=== PATIENT | male | born 1945 | race Caucasian/White ===

== ENCOUNTER 2019-04-12 22:37 | Inpatient (IN) | payer MEDICARE, OTHER ==
[~2019-04-12] VITALS: Ht 172.7 cm; Wt 76.2 kg
[2019-04-12] MEDS ORDERED: RT-ALBUTEROL/IPRATROPIUM 3 ML (DUONEB) VIAL ONE (22:51)
[2019-04-12] MEDS: NS IV 1000 ML 1,000 ML IV SCH (22:57)
[2019-04-12] MEDS ORDERED: RT-ALBUTEROL/IPRATROPIUM 3 ML (DUONEB) VIAL INH ONE (23:00)
[2019-04-12 23:12] LABS: BASOPHILS % (AUTO) 0 % (0-10); EOSINOPHILS % (AUTO) 0 % (0-10); HEMATOCRIT 39 % (40-54); HEMOGLOBIN 13.4 G/DL (13.3-17.7); LYMPHOCYTES # (AUTO) 1.2 X 10^3 (1.0-4.0); LYMPHOCYTES % (AUTO) 7 % (12-44); MEAN CORPUSCULAR HEMOGLOBIN 31 PG (25-34); MEAN CORPUSCULAR HGB CONC 34 G/DL (32-36); MEAN CORPUSCULAR VOLUME 89 FL (80-99); MEAN PLATELET VOLUME 9.9 FL (7.4-10.4); MONOCYTES # (AUTO) 1.4 X 10^3 (0.0-1.0); MONOCYTES % (AUTO) 8 % (0-12); NEUTROPHILS # (AUTO) 15.3 X 10^3 (1.8-7.8); NEUTROPHILS % (AUTO) 86 % (42-75); PLATELET COUNT 512 10^3/uL (130-400); RED CELL DISTRIBUTION WIDTH 12.7 % (10.0-14.5)
--- NOTE | 2019-04-12 23:21 | ED General ---
General Chief Complaint: Respiratory Problems Stated Complaint: SOB,CONGESTED Nursing Triage Note: AMBULATORY TO ED ROOM 5 WITH C/O SOA FOR A MONTH. DENIES HOME O2, BREATHING TX. STATES HE DOES NOT HAVE PCP. Nursing Sepsis Screen: No Definite Risk Source of Information: Patient Exam Limitations: No Limitations History of Present Illness Date Seen by Provider: Apr 12, 2019 Time Seen by Provider: 22:46 Initial Comments This 73-year-old gentleman presents to the emergency room with about one month of shortness of air, cough, and fevers. He has not taken his temperature at home but he is febrile on presentation. Oxygen saturation is 88 percent on room air. Nasal cannula was immediately applied. He appears very dry with dry mouth and lips. He denies any history of health problems. He has been taking no medications. He has no local medical provider. There are bibasilar crackles on exam. Allergies and Home Medications Allergies Coded Allergies: No Known Drug Allergies (Unverified , 04/12/19) Home Medications No Active Prescriptions or Reported Meds Patient Home Medication List Home Medication List Reviewed: Yes Review of Systems Review of Systems Constitutional: see HPI EENTM: see HPI Respiratory: see HPI Cardiovascular: no symptoms reported Gastrointestinal: no symptoms reported Genitourinary: no symptoms reported Musculoskeletal: no symptoms reported Skin: no symptoms reported Psychiatric/Neurological: No Symptoms Reported Hematologic/Lymphatic: No Symptoms Reported Past Tbdfxue-Ncawvd-Rmrpoi Hx Past Med/Social Hx: Reviewed Nursing Past Med/Soc Hx Patient Social History Alcohol Use: Occasionally Uses Recreational Drug Use: No Smoking Status: Former Smoker Recent Foreign Travel: No Contact w/Someone Who Travel: No Recent Infectious Disease Expo: No Recent Hopitalizations: No Physical Abuse: No Sexual Abuse: No Mistreated: No Fear: No Seasonal Allergies Seasonal Allergies: No Past Medical History Surgeries: No Respiratory: No Cardiac: No Neurological: No Genitourinary: No Gastrointestinal: No Musculoskeletal: No Endocrine: No HEENT: No Cancer: No Psychosocial: No Integumentary: No Blood Disorders: No Physical Exam-Suspected Sepsis Physical Exam Vital Signs Vital Signs - First Documented 04/12/19 04/12/19 04/12/19 22:45 22:46 23:02 Temp 37.9 Pulse 74 Resp 22 B/P (MAP) 97/62 (74) Pulse Ox 95 O2 Delivery Room Air O2 Flow Rate 2.00 Capillary Refill : Less Than 3 Seconds Blood Pressure Mean: 74 Height, Weight, BMI Height: '" Weight: lbs. oz. 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 Norm as Tested Skin: normal color, warm/dry Focused Exam Sepsis Stage: Severe Sepsis Possible Source: Pulmonary Lactate Level 04/12/19 22:55: Lactic Acid Level 2.93*H Time of Focused Exam: 23:40 Respiratory: No Accessory Muscle Use, No Respiratory Distress, Crackles Cardiovascular: Regular Rate, Rhythm, No Edema, No Murmur Capillary Refill: Less Than 3 Seconds Peripheral Pulses: 2+ Radial Pulses (R) Skin: normal color, warm/dry Lactic Acid Level Laboratory Tests Test 04/12/19 22:55 Lactic Acid Level 2.93 MMOL/L (0.50-2.00) *H Within 3hrs of presentation: Admin fluids, Admin ABX, Blood cultures prior to ABX's, Focus exam, Lactate level Progress/Results/Core Measures Suspected Sepsis Recent Fever Within 48 Hours: No Infection Criteria Present: Suspected New Infection New/Unexplained Altered Menta: No Sepsis Screen: No Definite Risk SIRS Temperature: Pulse: 74 Respiratory Rate: 22 Laboratory Tests 04/12/19 22:55: White Blood Count 18.0H Blood Pressure 97 /62 Mean: 74 04/12/19 22:55: Lactic Acid Level 2.93*H Laboratory Tests 04/12/19 22:55: Creatinine 1.09, INR Comment 1.3, Platelet Count 512H, Total Bilirubin 1.0 Results/Orders Lab Results Laboratory Tests Test 04/12/19 22:55 Range/Units White Blood Count 18.0 H 4.3-11.0 10^3/uL Red Blood Count 4.40 4.35-5.85 10^6/uL Hemoglobin 13.4 13.3-17.7 G/DL Hematocrit 39 L 40-54 % Mean Corpuscular Volume 89 80-99 FL Mean Corpuscular Hemoglobin 31 25-34 PG Mean Corpuscular Hemoglobin Concent 34 32-36 G/DL Red Cell Distribution Width 12.7 10.0-14.5 % Platelet Count 512 H 130-400 10^3/uL Mean Platelet Volume 9.9 7.4-10.4 FL Neutrophils (%) (Auto) 86 H 42-75 % Lymphocytes (%) (Auto) 7 L 12-44 % Monocytes (%) (Auto) 8 0-12 % Eosinophils (%) (Auto) 0 0-10 % Basophils (%) (Auto) 0 0-10 % Neutrophils # (Auto) 15.3 H 1.8-7.8 X 10^3 Lymphocytes # (Auto) 1.2 1.0-4.0 X 10^3 Monocytes # (Auto) 1.4 H 0.0-1.0 X 10^3 Eosinophils # (Auto) 0.0 0.0-0.3 10^3/uL Basophils # (Auto) 0.0 0.0-0.1 10^3/uL Neutrophils % (Manual) 79 % Lymphocytes % (Manual) 2 % Monocytes % (Manual) 9 % Band Neutrophils 10 % Blood Morphology Comment NORMAL Prothrombin Time 16.7 H 12.2-14.7 SEC INR Comment 1.3 0.8-1.4 Activated Partial Thromboplast Time 31 24-35 SEC Sodium Level 134 L 135-145 MMOL/L Potassium Level 3.9 3.6-5.0 MMOL/L Chloride Level 97 L 98-107 MMOL/L Carbon Dioxide Level 22 21-32 MMOL/L Anion Gap 15 H 5-14 MMOL/L Blood Urea Nitrogen 24 H 7-18 MG/DL Creatinine 1.09 0.60-1.30 MG/DL Estimat Glomerular Filtration Rate > 60 BUN/Creatinine Ratio 22 Glucose Level 271 H 70-105 MG/DL Lactic Acid Level 2.93 *H 0.50-2.00 MMOL/L Calcium Level 9.4 8.5-10.1 MG/DL Corrected Calcium 10.0 8.5-10.1 MG/DL Total Bilirubin 1.0 0.1-1.0 MG/DL Aspartate Amino Transf (AST/SGOT) 103 H 5-34 U/L Alanine Aminotransferase (ALT/SGPT) 109 H 0-55 U/L Alkaline Phosphatase 108 40-136 U/L C-Reactive Protein High Sensitivity 26.61 H 0.00-0.50 MG/DL Total Protein 7.6 6.4-8.2 GM/DL Albumin 3.2 3.2-4.5 GM/DL Micro Results Microbiology 04/12/19 Influenza Types A,B Antigen (BREANA) - Final, Complete My Orders Orders - JOSE GUZMÁN MD Cbc With Automated Diff (04/12/19 22:50) Comprehensive Metabolic Panel (04/12/19 22:50) Blood Culture (04/12/19 22:50) Sputum Culture (04/12/19 22:50) Urinalysis (04/12/19 22:50) Urine Culture (04/12/19 22:50) Protime With Inr (04/12/19 22:50) Partial Thromboplastin Time (04/12/19 22:50) Ed Iv/Invasive Line Start (04/12/19 22:50) Vital Signs Adult Sepsis Patie Q15M (04/12/19 22:50) O2 (04/12/19 22:50) Remove Rings In Anticipation O (04/12/19 22:50) Lactic Acid Analyzer (04/12/19 22:50) Influenza A And B Antigens (04/12/19 22:50) Ed Iv/Invasive Line Start (04/12/19 22:50) Ns Iv 1000 Ml (Sodium Chloride 0.9%) (04/12/19 22:50) Chest Pa/Lat (2 View) (04/12/19 22:52) Albuterol/Ipra Inhalation Soln (Duoneb I (04/12/19 23:00) Svn Small Volume Nebulizer (04/12/19 22:56) Albuterol/Ipra Inhalation Soln (Duoneb I (04/12/19 22:51) Hs C Reactive Protein (04/12/19 22:57) Manual Differential (04/12/19 22:55) Ceftriaxone For Iv Use (Rocephin For I (04/12/19 23:45) Acetaminophen Tablet (Tylenol Tablet) (04/12/19 23:45) Orphenadrine Injection (Norflex Injectio (04/13/19 00:00) Azithromycin Injection (Zithromax Inject (04/13/19 00:15) Medications Given in ED Current Medications Medications Dose Ordered Sig/Marva Route Start Time Stop Time Status Last Admin Dose Admin Acetaminophen 1,000 mg ONCE ONCE PO 04/12/19 23:45 04/12/19 23:46 DC 04/12/19 23:59 1,000 MG Albuterol/ Ipratropium 3 ml ONCE ONCE INH 04/12/19 23:00 04/12/19 23:01 DC 04/12/19 22:57 3 ML Ceftriaxone Sodium 1000 mg/ Sterile Water 10 ml @ 200 mls/hr ONCE ONCE IV 04/12/19 23:45 04/12/19 23:47 DC 04/12/19 23:59 200 MLS/HR Vital Signs/I&O 04/12/19 04/12/19 04/12/19 04/12/19 22:45 22:46 23:02 23:29 Temp 37.9 37.9 Pulse 74 64 Resp 22 22 B/P (MAP) 97/62 (74) 105/64 Pulse Ox 95 94 O2 Delivery Room Air Nasal Cannula Nasal Cannula Nasal Cannula O2 Flow Rate 2.00 2.00 2.00 04/12/19 23:59 Temp 37.9 Capillary Refill : Less Than 3 Seconds Blood Pressure Mean: 74 Progress Note #1: Time: 23:32 Progress Note Oxygen was administered by nasal cannula with resuscitation of oxygen saturation. DuoNeb treatment was administered. Septic workup is being pursued. 2 L of IV fluid have been ordered. X-ray and labs are pending. Progress Note #2: Time: 00:04 Progress Note Patient was found to have multilobar pneumonia on chest x-ray. Rocephin was ordered for initial antibiotic therapy for community-acquired pneumonia. Patient meets severe sepsis criteria due to the hypoxia but he is not in septic shock. Lactic acid is less than 4 and he is not hypotensive. He is receiving the 2 L normal saline bolus at this time. He wishes to have a full CODE STATUS. He will be admitted to the cardiac step down unit with the septic protocol orders. DuoNeb treatment was administered which seemed to improve his aeration some. Tylenol is being given for fever. Progress Note #3: Time: 00:31 Progress Note Patient complained of intractable hiccups. He states he has been given an injection before at the [facility] to help with his diaphragm spasms and hiccups. Many of the medications that can be used to treat hiccups have side effects that can cause respiratory suppression or hypotension. A 30 mg dose of Norflex is being trialed. Once patient's respiratory and hemodynamic stability is more certain, we could consider other medications such as Haldol. Diagnostic Imaging Diagonstic Imaging: Xray Plain Films/CT/US/NM/MRI: chest Comments Chest x-ray viewed by me. Report not yet available. There are infiltrates in multiple lobes including the right upper lobe and left lower lobe. Findings consistent with multilobar pneumonia. Departure Communication (Admissions) Time/Spoke to Admitting Phy: 23:50 Dr. Borja Impression Primary Impression: Severe sepsis Additional Impressions: Pneumonia Qualified Codes: J18.9 - Pneumonia, unspecified organism Hypoxia Intractable hiccups Disposition: ADMITTED INPATIENT Condition: Improved Admissions Decision to Admit Reason: Admit from ER (General) Decision to Admit/Date: Apr 12, 2019 Time/Decision to Admit Time: 22:50 Departure-Patient Inst. Scripts No Active Prescriptions or Reported Meds JOSE GUZMÁN MD Apr 12, 2019 23:21
[2019-04-12 23:24] LABS: INR 1.3 (0.8-1.4); PROTHROMBIN TIME PATIENT 16.7 SEC (12.2-14.7)
[2019-04-12 23:30] LABS: BAND NEUTROPHILS 10 %; LYMPHOCYTES % (MANUAL) 2 %; MONOCYTES % (MANUAL) 9 %; NEUTROPHILS % (MANUAL) 79 %; RBC MORPH NORMAL
[2019-04-12 23:38] LABS: ALANINE AMINOTRANSFERASE 109 U/L (0-55); ALBUMIN 3.2 GM/DL (3.2-4.5); ALKALINE PHOSPHATASE 108 U/L (40-136); BUN/CREATININE RATIO 22; CALCIUM 9.4 MG/DL (8.5-10.1); CARBON DIOXIDE 22 MMOL/L (21-32); CHLORIDE 97 MMOL/L (98-107); CREATININE SERUM 1.09 MG/DL (0.60-1.30); GFR ESTIMATED > 60; GLUCOSE 271 MG/DL (70-105); POTASSIUM 3.9 MMOL/L (3.6-5.0); SODIUM 134 MMOL/L (135-145); TOTAL PROTEIN 7.6 GM/DL (6.4-8.2)
[2019-04-12] MEDS ORDERED: ACETAMINOPHEN 500 MG TAB (TYLENOL) PO ONE (23:45)
[2019-04-12] MEDS ORDERED: cefTRIAXone FOR IV USE 1,000 MG in WATER (STERILE) FOR INJECTION 10 ML IV ONE (23:45)
[2019-04-13] VITALS (15 sets, daily range): BP systolic 97–123; BP diastolic 54–81
[2019-04-13] MEDS ORDERED: ORPHENADRINE 60 MG/2 ML (NORFLEX) AMP IV ONE
[2019-04-13] MEDS: NS IV 1000 ML 1,000 ML IV SCH ×6 (00:05→20:45)
[2019-04-13] MEDS ORDERED: AZITHROMYCIN INJECTION 500 MG in NS (IVPB) 250 ML IV ONE (00:15)
[2019-04-13 00:57] LABS: BILIRUBIN,URINE NEGATIVE (NEGATIVE); CLARITY,URINE CLEAR; COLOR,URINE YELLOW; GLUCOSE, URINE (UA) NEGATIVE (NEGATIVE); KETONES,URINE 2+ (NEGATIVE); LEUKOCYTE ESTERASE ,URINE NEGATIVE (NEGATIVE); NITRITE,URINE NEGATIVE (NEGATIVE); PH,URINE 5.5 (5-9); PROTEIN,URINE 1+ (NEGATIVE)
[2019-04-13 01:08] LABS: BACTERIA,URINE FEW /HPF
--- NOTE | 2019-04-13 01:40 | NUR ---
PENNY JAY admitted to room CU4-1, with an admitting diagnosis of SEVERE SEPSIS, MULTILOBAR PNEUMONIA, HYPOXIA , on 04/12/19 from ED via WHEELCHAIR, accompanied by HOSPITAL STAFF. PENNY JAY introduced to surroundings, call light, bed controls, phone, TV, temperature control, lights, meal times, smoking policy, visitor policy, side rail policy, bathrooms and showers. Patient Rights given to patient in the handbook.PENNY JAY verbalizes understanding that [facility] is not responsible for the loss or damage to any personal effects or valuables that are kept in the patients posession during their hospitalization. PENNY JAY verbalizes understanding of Interdisciplinary Patient Education. Patient and/or family were informed about the Rapid Response Team and its purpose.
[2019-04-13] MEDS ORDERED: ACETAMINOPHEN 500 MG TAB (TYLENOL) PO PRN (03:15)
[2019-04-13] MEDS ORDERED: ONDANSETRON 4 MG/2 ML (SDV) Z0FRAN IV PRN (03:15)
[2019-04-13] MEDS ORDERED: EPINEPHrine 1 MG INJECTION 2 MG in NS (IVPB) 250 ML IV SCH (03:15)
[2019-04-13 03:19] LABS: BASOPHILS % (AUTO) 0 % (0-10); EOSINOPHILS % (AUTO) 0 % (0-10); HEMATOCRIT 33 % (40-54); HEMOGLOBIN 11.2 G/DL (13.3-17.7); LYMPHOCYTES % (AUTO) 7 % (12-44); MEAN CORPUSCULAR HEMOGLOBIN 31 PG (25-34); MEAN CORPUSCULAR HGB CONC 34 G/DL (32-36); MEAN CORPUSCULAR VOLUME 90 FL (80-99); MEAN PLATELET VOLUME 9.7 FL (7.4-10.4); MONOCYTES # (AUTO) 1.1 X 10^3 (0.0-1.0); MONOCYTES % (AUTO) 8 % (0-12); NEUTROPHILS # (AUTO) 12.1 X 10^3 (1.8-7.8); NEUTROPHILS % (AUTO) 85 % (42-75); PLATELET COUNT 359 10^3/uL (130-400); RED CELL DISTRIBUTION WIDTH 12.6 % (10.0-14.5); WHITE BLOOD COUNT 14.2 10^3/uL (4.3-11.0)
[2019-04-13] MEDS: NOREPINEPHRINE 4 MG/250 ML 250 ML IV SCH ×3 (03:28→22:39)
[2019-04-13] MEDS: VASOPRESSIN INJECTION 20 UNIT in NORMAL SALINE 100 ML IV SCH ×3 (03:33→19:53)
[2019-04-13 03:43] LABS: ALANINE AMINOTRANSFERASE 82 U/L (0-55); ALBUMIN 2.5 GM/DL (3.2-4.5); ALKALINE PHOSPHATASE 76 U/L (40-136); BILIRUBIN,TOTAL 0.5 MG/DL (0.1-1.0); BUN/CREATININE RATIO 26; CALCIUM 7.9 MG/DL (8.5-10.1); CARBON DIOXIDE 22 MMOL/L (21-32); CHLORIDE 104 MMOL/L (98-107); CREATININE SERUM 0.86 MG/DL (0.60-1.30); GFR ESTIMATED > 60; GLUCOSE 270 MG/DL (70-105); POTASSIUM 3.9 MMOL/L (3.6-5.0); SODIUM 135 MMOL/L (135-145); TOTAL PROTEIN 5.8 GM/DL (6.4-8.2)
[2019-04-13] MEDS ORDERED: ENOXAPARIN 40 MG/0.4 ML (LOVENOX) SYR ONE (06:23)
[2019-04-13] MEDS ORDERED: LORazepam INJ 2 MG/ML (ATIVAN) VIAL IVP PRN (06:30)
[2019-04-13] MEDS: ENOXAPARIN 40 MG/0.4 ML (LOVENOX) SYR SC SCH (06:33)
[2019-04-13] MEDS ORDERED: FLU QUADRIvalent (5+ YOA) 2019-2020 (AFLURIA) 0.5 ML IM ONE (06:45)
--- NOTE | 2019-04-13 06:53 | Diagnostic Imaging Report ---
CLINICAL INDICATION: Patient with shortness of breath x1 month. EXAM: Chest x-ray PA and lateral views. COMPARISONS: None. FINDINGS: Lungs/pleura: There are small patchy areas of lung infiltrates involving both lung bases and right upper lobe region. There is no pneumothorax. There is no pleural effusion. Mediastinum: Unremarkable. Pulmonary vasculature: Unremarkable. Heart: Unremarkable. Bones/extrathoracic soft tissue: Unremarkable. IMPRESSION: Bilateral lung infiltrates in the right upper lobe and bibasilar regions concerning for pneumonia. Dictated by: Dictated on workstation # [id number]
[2019-04-13] MEDS: RT-ALBUTEROL/IPRATROPIUM 3 ML (DUONEB) VIAL INH SCH ×5 (07:48→21:25)
--- NOTE | 2019-04-13 07:58 | Pulmonary Consultation ---
History of Present Illness History of Present Illness Date Seen by Provider: Apr 13, 2019 Time Seen by Provider: 07:53 Date of Admission History of Present Illness 73yo presented to ED secondary to worsening SOB over the last month. Onset has been over the last month. While in the ED he was found to be hypoxic on 88% on RA and dx with PNA and sepsis. He has had similar prior episodes. I am consulted for pulmonary management. Allergies and Home Medications Allergies Coded Allergies: No Known Drug Allergies (Unverified , 04/12/19) Home Medications Azithromycin 250 Mg Tablet, 250 MG PO DAILY Prescribed by: ILEANA DIAS on 04/15/19 1156 Cephalexin 500 Mg Capsule, 500 MG PO BID Prescribed by: ILEANA DIAS on 04/15/19 1156 Chlorpromazine HCl 25 Mg Tablet, 50 MG PO TID PRN for hiccups Prescribed by: ILEANA DIAS on 04/15/19 1156 Naproxen Sodium 220 Mg Tablet, 440 MG PO Q8H PRN for PAIN-MILD (1-4), (Reported) Past Fwbtkua-Cyhfhg-Xaankr Hx Past Med/Social Hx: Reviewed Nursing Past Med/Soc Hx Patient Social History Alcohol Use: Occasionally Uses Recreational Drug Use: No Smoking Status: Former Smoker Recent Foreign Travel: No Contact w/Someone Who Travel: No Recent Infectious Disease Expo: No Recent Hopitalizations: No Physical Abuse: No Sexual Abuse: No Mistreated: No Fear: No Seasonal Allergies Seasonal Allergies: No Past Medical History Surgeries: No Respiratory: No Cardiac: No Neurological: No Genitourinary: No Gastrointestinal: No Musculoskeletal: No Endocrine: No HEENT: No Cancer: No Psychosocial: No Integumentary: No Blood Disorders: No Family Medical History Colon cancer 19 MOTHER Completed stroke 19 FATHER Review of Systems Time Seen by Provider: 08:00 Constitutional: Fever, Chills, Sweats, Weakness, Malaise, Other Eyes: No: Pain, Vision change, Conjunctivae inflammation, Eyelid inflammation, Other, Redness ENT: Nose congestion; No: Ear pain, Ear discharge, Nose pain, Nose discharge, Mouth pain, Mouth swelling, Throat pain, Throat swelling, Other Respiratory: Cough, Dry, Shortness of breath, SOB with excertion; No: Wheezing, Hemoptysis Sepsis Event Evaluation Height, Weight, BMI Height: '" Weight: lbs. oz. kg; 23.67 BMI Method: Exam Exam Vital Signs Date Time Temp Pulse Resp B/P (MAP) Pulse Ox O2 Delivery O2 Flow Rate FiO2 04/13/19 06:00 52 13 115/64 (81) Nasal Cannula 2.00 04/13/19 04:00 50 26 114/65 (81) Nasal Cannula 2.00 04/13/19 04:00 36.5 04/13/19 04:00 95 Nasal Cannula 2.00 04/13/19 03:24 37.9 74 88 04/13/19 03:00 53 14 109/56 (73) Nasal Cannula 2.00 04/13/19 02:45 54 15 102/56 (71) Nasal Cannula 2.00 04/13/19 02:30 56 17 104/54 (71) Nasal Cannula 2.00 04/13/19 02:15 54 14 111/58 (75) Nasal Cannula 2.00 04/13/19 02:00 52 99/63 (75) Nasal Cannula 2.00 04/13/19 01:45 56 16 106/64 (78) Nasal Cannula 2.00 04/13/19 01:44 56 04/13/19 01:40 95 Nasal Cannula 2.00 04/13/19 01:40 36.5 04/13/19 01:30 37.8 56 20 11/63 (78) 96 Nasal Cannula 2.00 04/12/19 23:59 37.9 04/12/19 23:29 37.9 64 22 105/64 94 Nasal Cannula 2.00 04/12/19 23:02 95 Nasal Cannula 2.00 04/12/19 22:46 Nasal Cannula 2.00 04/12/19 22:45 37.9 74 22 97/62 (74) Room Air I & O 04/13/19 07:00 Intake Total 3260 ml Balance 3260 ml Height & Weight Height: '" Weight: lbs. oz. 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
[2019-04-13 08:18] LABS: ALANINE AMINOTRANSFERASE 83 U/L (0-55); ALBUMIN 2.5 GM/DL (3.2-4.5); ALKALINE PHOSPHATASE 77 U/L (40-136); BILIRUBIN,DIRECT 0.4 MG/DL (0.0-0.3); BILIRUBIN,INDIRECT 0.1 MG/DL; BILIRUBIN,TOTAL 0.5 MG/DL (0.1-1.0); TOTAL PROTEIN 5.8 GM/DL (6.4-8.2)
[2019-04-13] MEDS ORDERED: NAPR220T66 PO (09:13)
--- NOTE | 2019-04-13 09:13 | NUR ---
PATIENT STATES HE TAKES ALEVE OTC NEEDED. HE DOES NOT TAKE ANYTHING PRESCRIPTION OR OTC ON A REGULAR BASIS.
--- NOTE | 2019-04-13 09:52 | History & Physical-Hospitalist ---
JOSERAKESH,MED STUDENT 04/13/19 0952: History of Present Illness HPI/Chief Complaint Patient is a 73 y/o male who presented to the ED last night with chief complaint of shortness of breath. He was hypoxic on arrival with O2 sat 88%. He reports shortness of breath and dry cough began 1 week ago and have been progressively worsening. Symptoms are made worse with physical exertion. Nothing makes the cough better. He also reports intractable hiccups. He denies associated fever, chills, headache, myalgias, abdominal pain, chest pain, or palpitations. He denies any history of other medical conditions and takes no medications on a regular basis. He does not have an established primary care provider. Source: patient Date Seen 04/13/19 Time Seen by a Provider: 09:02 Attending Physician Krishna Borja MD PCP No,Local Physician Referring Physician Date of Admission Apr 12, 2019 at 23:57 Home Medications & Allergies Home Medications Reviewed patient Home Medication Reconciliation performed by pharmacy medication reconciliations tire maintenance technician and/or nursing. Patients Allergies have been reviewed. Allergies Allergies Coded Allergies No Known Drug Allergies (Unverified04/12/19) Past Ovurcgf-Rfaqai-Xfwzab Hx Past Med/Social Hx: Reviewed Nursing Past Med/Soc Hx Patient Social History Alcohol Use: Occasionally Uses Recreational Drug Use: No Smoking Status: Former Smoker (quit at age 30, 9 pack year history) Physical Abuse Screen: No Sexual Abuse: No Recent Foreign Travel: No Contact w/other who traveled: No Recent Hopitalizations: No Recent Infectious Disease Expo: No Seasonal Allergies Seasonal Allergies: No Past Medical History History of Blood Disorders: No Family History Colon cancer 19 MOTHER Completed stroke 19 FATHER Review of Systems Constitutional: No chills, No fever EENTM: No hearing loss, No vision loss Respiratory: cough, short of breath Cardiovascular: No chest pain, No edema Gastrointestinal: No abdominal pain, No nausea Genitourinary: No dysuria, No frequency Musculoskeletal: No muscle pain, No neck pain Skin: No lesions, No rash Psychiatric/Neurological: Denies Headache, Denies Paresthesia Physical Exam Physical Exam Vital Signs Vital Signs - First Documented 04/12/19 04/12/19 04/12/19 04/13/19 22:45 22:46 23:02 11:21 Temp 37.9 Pulse 74 Resp 22 B/P (MAP) 97/62 (74) Pulse Ox 95 O2 Delivery Room Air O2 Flow Rate 2.00 FiO2 21 Capillary Refill : Less Than 3 Seconds Height, Weight, BMI Height: '" Weight: lbs. oz. kg; 23.67 BMI Method: General Appearance: No Apparent Distress, WD/WN HEENT: Pharynx Normal, Other (dry mucous membranes) Neck: Non Tender, Supple Respiratory: Chest Non Tender, No Accessory Muscle Use, No Respiratory Distress, Wheezing (bilateral lung bases, worse on the right) Cardiovascular: No Edema, No Murmur, Bradycardia Gastrointestinal: Non Tender, Soft Extremity: Non Tender, No Pedal Edema Neurologic/Psychiatric: Alert, Oriented x3, Normal Mood/Affect Skin: Normal Color, Warm/Dry Results Results/Procedures Labs Laboratory Tests 04/12/19 22:55 04/13/19 03:05 Patient resulted labs reviewed. Imaging CHEST XR PA/LAT IMPRESSION: Bilateral lung infiltrates in the right upper lobe and bibasilar regions concerning for pneumonia. Assessment/Plan Admission Diagnosis Community acquired pneumonia with severe sepsis Admission Status: Inpatient Order (span 2 midnights) Assessment and Plan Community acquired pneumonia with severe sepsis - Patient met severe sepsis criteria with leukocytosis, respiratory rate, and hypoxia - Lactic acid was 2.93 on arrival, now normalized at 1.66 - On ceftriaxone and azithromycin - IV normal saline at 110 ml/hr - Xiong cultures pending - Influenza negative, flu vaccine given - O2 as needed - MAT protocol - Pulmonology following, appreciate recommendations Elevated liver enzymes - Likely due to severe sepsis - Liver panel pending Sinus bradycardia - Patient asymptomatic - Troponin within normal limits - Will obtain EKG Hyperglycemia - Check A1c - Diabetic diet - Sliding scale insulin DVT prophylaxis - Lovenox 40 mg subcutaneous daily - SCDs Clinical Quality Measures DVT/VTE Risk/Contraindication: Risk Factor Score Per Nursin RFS Level Per Nursing on Admit: 4+=Very High ILEANA MONTOYA MD 04/13/19 1237: Past Odeqina-Igmrpm-Yyistr Hx Family History Colon cancer 19 MOTHER Completed stroke 19 FATHER Assessment/Plan Assessment and Plan Pt admitted with severe sepsis from bilateral pneumonia. He is currently on room air and doing well. lactic acidosis resolved. Will continue on IV abx. MAT Protocol. Dr Castellano consulted, appreciate recs. Has intractable hiccups. Will start thorazine. Diagnosis/Problems Diagnosis/Problems (1) Intractable hiccups Status: Acute (2) Pneumonia Status: Acute Qualifiers: Pneumonia type: due to unspecified organism Laterality: bilateral Lung location: unspecified part of lung Qualified Codes: J18.9 - Pneumonia, unspecified organism (3) Severe sepsis Status: Acute (4) Hypoxia Status: Acute Supervisory-Addendum Brief Verification & Attestation Participated in pt care: history, MDM, physical Personally performed: exam, history, MDM, supervision of care Care discussed with: Medical Student Procedures: n/a Results interpretation: Verified all documentation Verification and Attestation of Medical Student E/M Service A medical student performed and documented this service in my presence. I reviewed and verified all information documented by the medical student and made modifications to such information, when appropriate. I personally performed the physical exam and medical decision making. Ileana Montoya, Apr 13, 2019,12:32 RAKESH GARCIA,MED STUDENT Apr 13, 2019 09:52 ILEANA MONTOYA MD Apr 13, 2019 12:37
[2019-04-13] MEDS ORDERED: RT-ALBUTEROL/IPRATROPIUM 3 ML (DUONEB) VIAL INH PRN (12:00)
[2019-04-13] MEDS: chlorproMAZINE 25 MG (THORAZINE) TAB PO PRN ×2 (12:45→20:45)
[2019-04-14] VITALS (7 sets, daily range): BP systolic 110–126; BP diastolic 59–62
[2019-04-14] MEDS: RT-ALBUTEROL/IPRATROPIUM 3 ML (DUONEB) VIAL INH SCH ×3 (01:34→10:03)
[2019-04-14] MEDS ORDERED: AZITHROMYCIN INJECTION 500 MG in NS (IVPB) 250 ML IV SCH (02:00)
[2019-04-14] MEDS: cefTRIAXone FOR IV USE 1,000 MG in WATER (STERILE) FOR INJECTION 10 ML IV SCH (02:13)
[2019-04-14 03:35] LABS: BASOPHILS % (AUTO) 0 % (0-10); EOSINOPHILS % (AUTO) 0 % (0-10); HEMATOCRIT 32 % (40-54); HEMOGLOBIN 10.5 G/DL (13.3-17.7); LYMPHOCYTES # (AUTO) 1.1 X 10^3 (1.0-4.0); LYMPHOCYTES % (AUTO) 9 % (12-44); MEAN CORPUSCULAR HEMOGLOBIN 30 PG (25-34); MEAN CORPUSCULAR HGB CONC 33 G/DL (32-36); MEAN CORPUSCULAR VOLUME 91 FL (80-99); MEAN PLATELET VOLUME 9.9 FL (7.4-10.4); MONOCYTES # (AUTO) 0.9 X 10^3 (0.0-1.0); MONOCYTES % (AUTO) 8 % (0-12); NEUTROPHILS # (AUTO) 10.1 X 10^3 (1.8-7.8); NEUTROPHILS % (AUTO) 83 % (42-75); PLATELET COUNT 365 10^3/uL (130-400); RED CELL DISTRIBUTION WIDTH 13.3 % (10.0-14.5); WHITE BLOOD COUNT 12.2 10^3/uL (4.3-11.0)
[2019-04-14 03:56] LABS: ALANINE AMINOTRANSFERASE 54 U/L (0-55); ALBUMIN 2.3 GM/DL (3.2-4.5); ALKALINE PHOSPHATASE 78 U/L (40-136); BILIRUBIN,TOTAL 0.4 MG/DL (0.1-1.0); BUN/CREATININE RATIO 17; CARBON DIOXIDE 22 MMOL/L (21-32); CHLORIDE 109 MMOL/L (98-107); CREATININE SERUM 0.82 MG/DL (0.60-1.30); GFR ESTIMATED > 60; GLUCOSE 194 MG/DL (70-105); POTASSIUM 3.9 MMOL/L (3.6-5.0); SODIUM 139 MMOL/L (135-145); TOTAL PROTEIN 5.5 GM/DL (6.4-8.2)
[2019-04-14] MEDS: VASOPRESSIN INJECTION 20 UNIT in NORMAL SALINE 100 ML IV SCH (04:29)
--- NOTE | 2019-04-14 04:46 | Pulmonary Progress Note ---
Subjective Time Seen by a Provider: 04:42 Subjective/Events-last exam Pt is doing better. Sepsis Event Evaluation Height, Weight, BMI Height: '" Weight: lbs. oz. kg; 23.67 BMI Method: Focused Exam Lactate Level 04/12/19 22:55: Lactic Acid Level 2.93*H 04/13/19 00:59: Lactic Acid Level 2.26*H 04/13/19 03:05: Lactic Acid Level 1.66 Time of Focused Exam: 23:40 Exam Exam Vital Signs Date Time Temp Pulse Resp B/P (MAP) Pulse Ox O2 Delivery O2 Flow Rate FiO2 04/14/19 04:32 37.0 18 90 Nasal Cannula 2.00 04/14/19 04:20 Room Air 04/14/19 04:00 51 28 114/60 (78) Nasal Cannula 2.00 04/14/19 01:40 55 04/14/19 00:22 Room Air 04/14/19 00:00 60 23 114/61 (78) Nasal Cannula 2.00 04/13/19 23:05 37.2 55 16 123/68 (86) 95 Nasal Cannula 2.00 04/13/19 21:12 Room Air 04/13/19 20:00 52 119/81 (94) Room Air 04/13/19 20:00 Room Air 04/13/19 20:00 37.1 92 Room Air 04/13/19 19:00 57 04/13/19 16:05 37.2 90 Room Air 04/13/19 16:00 93 Room Air 04/13/19 16:00 51 107/58 (74) Room Air 04/13/19 13:22 58 04/13/19 12:30 37.1 95 Room Air 04/13/19 12:02 95 Room Air 04/13/19 12:00 52 115/58 (77) Nasal Cannula 2.00 04/13/19 11:21 37.9 74 88 21 04/13/19 09:00 Room Air 04/13/19 08:00 36.8 66 20 117/66 (83) 99 Nasal Cannula 2.00 04/13/19 08:00 96 Nasal Cannula 2.00 04/13/19 07:48 95 Room Air 04/13/19 06:45 59 04/13/19 06:00 52 13 115/64 (81) Nasal Cannula 2.00 I & O 04/14/19 07:00 Intake Total 1800 ml Output Total 1000 ml Balance 800 ml Height & Weight Height: '" Weight: lbs. oz. kg; 23.67 BMI Method: General Appearance: No Apparent Distress, WD/WN HEENT: Pharynx Normal, Other (dry mucous membranes) Neck: Non Tender, Supple Respiratory: Chest Non Tender, No Accessory Muscle Use, No Respiratory Distress, Wheezing (bilateral lung bases, worse on the right) Cardiovascular: No Edema, No Murmur, Bradycardia Capillary Refill: Less Than 3 Seconds Peripheral Pulses: 2+ Radial Pulses (R) Extremity: Non Tender, No Pedal Edema Neurologic/Psychiatric: Alert, Oriented x3, Normal Mood/Affect Skin: Normal Color, Warm/Dry Results Lab Laboratory Tests 04/12/19 22:55 04/13/19 03:05 04/14/19 03:05 Assessment/Plan Assessment/Plan PNA with sepsis with hypoxia -Continue Rocephin and azithromycin -Xiong cultures pending -IVF -Influenza is negative -oxygen Metabolic lactic acidosis -IVF Sinus bradycardia- denies CP -Monitor Elevated LFTs - probably secondary to sepsis -Monitor -Check hepatitis panel JANAK GONZALEZ DO Apr 14, 2019 04:46
[2019-04-14] MEDS: ENOXAPARIN 40 MG/0.4 ML (LOVENOX) SYR SC SCH (05:52)
[2019-04-14] MEDS: chlorproMAZINE 25 MG (THORAZINE) TAB PO PRN ×2 (05:57→15:55)
[2019-04-14] MEDS: NS IV 1000 ML 1,000 ML IV SCH (07:56)
--- NOTE | 2019-04-14 08:51 | NUR ---
pt report given to Carmel JUAREZ at 0805, Pt transferred at 0820 to room 416 with belongings
[2019-04-14] MEDS ORDERED: BENZONATATE 100 MG (TESSALON) CAPSULE PO PRN (10:15)
--- NOTE | 2019-04-14 11:19 | Progress Note - Hospitalist ---
RAKESH GARCIA,MED STUDENT 04/14/19 1119: Subjective HPI/CC On Admission Date Seen by Provider: Apr 14, 2019 Time Seen by Provider: 08:35 Patient is a 73 y/o male who presented to the ED last night with chief complaint of shortness of breath. He was hypoxic on arrival with O2 sat 88%. He reports shortness of breath and dry cough began 1 week ago and have been progressively worsening. Symptoms are made worse with physical exertion. Nothing makes the cough better. He also reports intractable hiccups. He denies associated fever, chills, headache, myalgias, abdominal pain, chest pain, or palpitations. He denies any history of other medical conditions and takes no medications on a regular basis. He does not have an established primary care provider. Subjective/Events-last exam Patient feeling better today but still short of breath and dry coughing. He continues to complain of intractable hiccups but states that these improve with the Thorazine. Denies productive cough, chest pain, or abdominal pain. Focused Exam Lactate Level 04/12/19 22:55: Lactic Acid Level 2.93*H 04/13/19 00:59: Lactic Acid Level 2.26*H 04/13/19 03:05: Lactic Acid Level 1.66 Time of Focused Exam: 23:40 Objective Exam Vital Signs Vital Signs Date Time Temp Pulse Resp B/P (MAP) Pulse Ox O2 Delivery O2 Flow Rate FiO2 04/14/19 12:44 48 04/14/19 12:05 18 126/60 (82) 93 Room Air 04/14/19 12:00 2.00 04/14/19 08:25 36.6 04/13/19 11:21 21 Capillary Refill : Less Than 3 Seconds General Appearance: No Apparent Distress, WD/WN HEENT: Pharynx Normal, Moist Mucous Membranes Neck: Non Tender, Supple Respiratory: Chest Non Tender, No Accessory Muscle Use, No Respiratory Distress; No Crackles; Decreased Breath Sounds; No Wheezing Cardiovascular: No Murmur, Bradycardia Gastrointestinal: Non Tender, Soft Extremity: No Calf Tenderness; No Swelling Neurologic/Psychiatric: Alert, Normal Mood/Affect Skin: Normal Color, Warm/Dry Results/Procedures Lab Laboratory Tests 04/14/19 03:05 Patient resulted labs reviewed. Assessment/Plan Assessment and Plan Assess & Plan/Chief Complaint Community acquired pneumonia with severe sepsis - Severe sepsis resolved - Continue ceftriaxone and azithromycin - If tolerating PO fluids, would discontinue IV NS - Xiong cultures negative - He is refusing RT treatments, will discontinue MAT protocol - Pulmonology following, appreciate recommendations Elevated liver enzymes - Likely due to severe sepsis - Liver enzymes improving Sinus bradycardia - Patient asymptomatic - Troponin within normal limits - EKG done Hyperglycemia - Diabetic diet - Sliding scale insulin - Recommend establishing with primary care provider and outpatient follow up DVT prophylaxis - Lovenox - SCDs Intractable Hiccups - Thorazine 50 mg TID Clinical Quality Measures DVT/VTE Risk/Contraindication: Risk Factor Score Per Nursin RFS Level Per Nursing on Admit: 4+=Very High ILEANA MONTOYA MD 04/14/19 1611: Assessment/Plan Assessment and Plan Assess & Plan/Chief Complaint Pt reports feeling better. Hiccups improving. Cough improving but still present. Not ready to DC. Will increase thorazine for hiccups. Supervisory-Addendum Brief Verification & Attestation Participated in pt care: history, MDM, physical Personally performed: exam, history, MDM, supervision of care Care discussed with: Medical Student Procedures: n/a Results interpretation: Verified all documentation Verification and Attestation of Medical Student E/M Service A medical student performed and documented this service in my presence. I reviewed and verified all information documented by the medical student and made modifications to such information, when appropriate. I personally performed the physical exam and medical decision making. Ileana Montoya, Apr 14, 2019,16:11 RAKESH GARCIA,MED STUDENT Apr 14, 2019 11:19 ILEANA MONTOYA MD Apr 14, 2019 16:11
[2019-04-15] VITALS: BP 136/69
[2019-04-15] MEDS ORDERED: cefTRIAXone 1,000 MG IV (ROCEPHIN) VIAL ONE (01:33)
[2019-04-15] MEDS ORDERED: WATER (STERILE) FOR INJECTION 10 ML ONE (01:33)
[2019-04-15] MEDS: cefTRIAXone FOR IV USE 1,000 MG in WATER (STERILE) FOR INJECTION 10 ML IV SCH (02:32)
[2019-04-15 04:43] VITALS: BP 125/61
[2019-04-15 06:17] LABS: BASOPHILS % (AUTO) 0 % (0-10); EOSINOPHILS % (AUTO) 0 % (0-10); HEMATOCRIT 30 % (40-54); HEMOGLOBIN 9.9 G/DL (13.3-17.7); LYMPHOCYTES # (AUTO) 1.3 X 10^3 (1.0-4.0); LYMPHOCYTES % (AUTO) 10 % (12-44); MEAN CORPUSCULAR HEMOGLOBIN 30 PG (25-34); MEAN CORPUSCULAR HGB CONC 33 G/DL (32-36); MEAN CORPUSCULAR VOLUME 92 FL (80-99); MEAN PLATELET VOLUME 10.4 FL (7.4-10.4); MONOCYTES # (AUTO) 1.2 X 10^3 (0.0-1.0); MONOCYTES % (AUTO) 9 % (0-12); NEUTROPHILS # (AUTO) 10.1 X 10^3 (1.8-7.8); NEUTROPHILS % (AUTO) 80 % (42-75); PLATELET COUNT 365 10^3/uL (130-400); WHITE BLOOD COUNT 12.7 10^3/uL (4.3-11.0)
[2019-04-15] MEDS: ENOXAPARIN 40 MG/0.4 ML (LOVENOX) SYR SC SCH (06:30)
[2019-04-15 07:10] LABS: ALANINE AMINOTRANSFERASE 58 U/L (0-55); ALBUMIN 2.3 GM/DL (3.2-4.5); ALKALINE PHOSPHATASE 101 U/L (40-136); BILIRUBIN,TOTAL 0.4 MG/DL (0.1-1.0); BUN/CREATININE RATIO 13; CALCIUM 8.3 MG/DL (8.5-10.1); CARBON DIOXIDE 24 MMOL/L (21-32); CHLORIDE 103 MMOL/L (98-107); CREATININE SERUM 0.77 MG/DL (0.60-1.30); GFR ESTIMATED > 60; GLUCOSE 198 MG/DL (70-105); POTASSIUM 3.7 MMOL/L (3.6-5.0); SODIUM 135 MMOL/L (135-145); TOTAL PROTEIN 5.5 GM/DL (6.4-8.2)
[2019-04-15 07:38] VITALS: BP 113/55
[2019-04-15] MEDS ORDERED: AZITHROMYCIN 250 MG TAB (ZITHROMAX) PO SCH (09:00)
[2019-04-15] MEDS: chlorproMAZINE 25 MG (THORAZINE) TAB PO PRN (09:27)
[2019-04-15 11:36] VITALS: BP 123/62
[2019-04-15] MEDS ORDERED: CHLO25TA20 PO (11:56)
[2019-04-15] MEDS ORDERED: CEPH-507 PO (11:56)
[2019-04-15] MEDS ORDERED: AZIT250T12 PO (11:56)
--- NOTE | 2019-04-15 12:04 | Discharge Inst-Simple/Standard ---
Discharge Inst-Standard Discharge Medications New, Converted or Re-Newed RX: Transmitted to Pharmacy Patient Instructions/Follow Up Plan of Care/Instructions/FU: Please continue to take your medications as written. Please follow up with a PCP in the next 1-2 weeks. Your blood sugars have been high here in the hospital and it is important to follow with a primary care doctor to make sure they improve. It is also important to get up to date on your preventive care. Activity as Tolerated: Yes Discharge Diet: ADA Diet Return to The Hospital For: Chest pain, fever, shortness of breath, worsening cough, if you feel you are getting worse. Planned Outpatient Orders/Ref. Pneu Vac Indicated: Yes ILEANA DIAS MD Apr 15, 2019 12:04
--- NOTE | 2019-04-15 12:07 | Discharge Summary ---
JOSERAKESH,MED STUDENT 04/15/19 1207: Diagnosis/Chief Complaint Date of Admission Apr 12, 2019 at 23:57 Date of Discharge Discharge Date: Apr 15, 2019 Admission Diagnosis Community acquired pneumonia with severe sepsis Primary Care No,Local Physician Discharge Diagnosis (1) Intractable hiccups Status: Acute (2) Pneumonia Status: Acute (3) Severe sepsis Status: Acute (4) Hypoxia Status: Acute Discharge Summary Discharge Physical Exam Allergies: Coded Allergies: No Known Drug Allergies (Unverified , 04/12/19) Vitals & I&Os Vital Signs Date Time Temp Pulse Resp B/P (MAP) Pulse Ox O2 Delivery O2 Flow Rate FiO2 04/15/19 11:36 37.2 62 16 123/62 (82) 92 Room Air 04/15/19 10:27 2.00 04/13/19 11:21 21 General Appearance: No Apparent Distress, WD/WN HEENT: Pharynx Normal, Moist Mucous Membranes Respiratory: Chest Non Tender, Lungs Clear, Normal Breath Sounds, No Accessory Muscle Use, No Respiratory Distress Cardiovascular: Regular Rate, Rhythm, No Murmur Gastrointestinal: Non Tender, Soft Skin: Normal Color, Warm/Dry Neurologic/Psychiatric: Alert, Normal Mood/Affect Hospital Course Was the Problem List Reviewed?: Yes Patient is a 73 y/o male who presented to the ED on 04/12/19 with shortness of breath and cough and was subsequently admitted to the ICU for community acquired pneumonia with severe sepsis. He was started on IV fluids, ceftriaxone, and azithromycin and was able to move to the floor the following day. He had intractable hiccups throughout his hospital stay but these did improve with Thorazine titrated up to 50 mg BID. His lab findings were remarkable for elevated liver enzymes and hyperglycemia. His liver enzymes have been trending down, and were likely elevated due to severe sepsis. He was advised to establish care with a primary care provider and follow up outpatient for the hyperglycemia. He was mildly bradycardic throughout his hospital stay but has remained asymptomatic. Cardiac enzymes were negative and ECG was not worrisome. He is feeling much better today and would like to go home. Will do an ambulatory O2 sat prior to discharge and send him home with oxygen if needed. He was provided a list of primary care providers in the area and instructed to follow up in the next 1-2 weeks. Labs (last 24 hrs) Laboratory Tests 04/15/19 05:36: White Blood Count 12.7H, Red Blood Count 3.27L, Hemoglobin 9.9L, Hematocrit 30L, Mean Corpuscular Volume 92, Mean Corpuscular Hemoglobin 30, Mean Corpuscular Hemoglobin Concent 33, Red Cell Distribution Width 13.0, Platelet Count 365, Mean Platelet Volume 10.4, Neutrophils (%) (Auto) 80H, Lymphocytes (%) (Auto) 10L, Monocytes (%) (Auto) 9, Eosinophils (%) (Auto) 0, Basophils (%) (Auto) 0, Neutrophils # (Auto) 10.1H, Lymphocytes # (Auto) 1.3, Monocytes # (Auto) 1.2H, Eosinophils # (Auto) 0.0, Basophils # (Auto) 0.0, Sodium Level 135, Potassium Level 3.7, Chloride Level 103, Carbon Dioxide Level 24, Anion Gap 8, Blood Urea Nitrogen 10, Creatinine 0.77, Estimat Glomerular Filtration Rate > 60, BUN/Creatinine Ratio 13, Glucose Level 198H, Calcium Level 8.3L, Corrected Calcium 9.7, Total Bilirubin 0.4, Aspartate Amino Transf (AST/SGOT) 51H, Alanine Aminotransferase (ALT/SGPT) 58H, Alkaline Phosphatase 101, Total Protein 5.5L, Albumin 2.3L Microbiology 04/13/19 Gram Stain - Final, Complete 04/13/19 Sputum Culture - Final, Complete Usual upper respiratory azul 04/13/19 Urine Culture - Final, Complete NO GROWTH 04/12/19 Blood Culture - Preliminary, Resulted No growth Patient resulted labs reviewed. Pending Labs Laboratory Tests 04/15/19 05:36: White Blood Count 12.7, Red Blood Count 3.27, Hemoglobin 9.9, Hematocrit 30, Mean Corpuscular Volume 92, Mean Corpuscular Hemoglobin 30, Mean Corpuscular Hemoglobin Concent 33, Red Cell Distribution Width 13.0, Platelet Count 365, Mean Platelet Volume 10.4, Neutrophils (%) (Auto) 80, Lymphocytes (%) (Auto) 10, Monocytes (%) (Auto) 9, Eosinophils (%) (Auto) 0, Basophils (%) (Auto) 0, Neutrophils # (Auto) 10.1, Lymphocytes # (Auto) 1.3, Monocytes # (Auto) 1.2, Eosinophils # (Auto) 0.0, Basophils # (Auto) 0.0, Sodium Level 135, Potassium Level 3.7, Chloride Level 103, Carbon Dioxide Level 24, Anion Gap 8, Blood Urea Nitrogen 10, Creatinine 0.77, Estimat Glomerular Filtration Rate > 60, BUN/Creatinine Ratio 13, Glucose Level 198, Calcium Level 8.3, Corrected Calcium 9.7, Total Bilirubin 0.4, Aspartate Amino Transf (AST/SGOT) 51, Alanine Aminotransferase (ALT/SGPT) 58, Alkaline Phosphatase 101, Total Protein 5.5, Albumin 2.3 Discharge Home Medications: Active Scripts Active Keflex (Cephalexin) 500 Mg Capsule 500 Mg PO BID Chlorpromazine HCl 25 Mg Tablet 50 Mg PO TID PRN Azithromycin 250 Mg Tablet 250 Mg PO DAILY Reported Aleve (Naproxen Sodium) 220 Mg Tablet 440 Mg PO Q8H PRN Instructions to patient/family Please see electronic discharge instructions given to patient. Clinical Quality Measures DVT/VTE Risk/Contraindication: Risk Factor Score Per Nursin RFS Level Per Nursing on Admit: 4+=Very High ILEANA MONTOYA MD 04/17/19 1535: Discharge Summary Discharge Physical Exam Allergies: Coded Allergies: No Known Drug Allergies (Unverified , 04/12/19) Discussion & Recommendations Discharge Planning: <30 minutes discharge planning Supervisory-Addendum Brief Verification & Attestation Participated in pt care: history, MDM, physical Personally performed: exam, history, MDM, supervision of care Care discussed with: Medical Student Procedures: n/a Results interpretation: Verified all documentation Verification and Attestation of Medical Student E/M Service A medical student performed and documented this service in my presence. I reviewed and verified all information documented by the medical student and made modifications to such information, when appropriate. I personally performed the physical exam and medical decision making. Ileana Montoya, Apr 17, 2019,15:35 Problem Qualifiers (1) Pneumonia: Pneumonia type: due to unspecified organism Laterality: bilateral Lung location: unspecified part of lung Qualified Codes: J18.9 - Pneumonia, un specified organism RAKESH GARCIA,MED STUDENT Apr 15, 2019 12:07 ILEANA MONTOYA MD Apr 17, 2019 15:35
--- NOTE | 2019-04-15 12:53 | Pulmonary Progress Note ---
Subjective Time Seen by a Provider: 12:51 Subjective/Events-last exam PT is getter better. No complications noted. Sepsis Event Evaluation Height, Weight, BMI Height: '" Weight: lbs. oz. kg; 23.67 BMI Method: Focused Exam Lactate Level 04/12/19 22:55: Lactic Acid Level 2.93*H 04/13/19 00:59: Lactic Acid Level 2.26*H 04/13/19 03:05: Lactic Acid Level 1.66 Time of Focused Exam: 23:40 Exam Exam Vital Signs Date Time Temp Pulse Resp B/P (MAP) Pulse Ox O2 Delivery O2 Flow Rate FiO2 04/15/19 12:16 58 04/15/19 11:36 37.2 62 16 123/62 (82) 92 Room Air 04/15/19 10:27 Nasal Cannula 2.00 04/15/19 07:38 37.0 59 16 113/55 (74) 93 Nasal Cannula 2.00 04/15/19 07:00 54 04/15/19 04:43 37.2 54 18 125/61 (82) 93 Nasal Cannula 2.00 04/15/19 01:00 63 04/15/19 00:00 37.8 63 18 136/69 (91) 93 Nasal Cannula 2.00 04/14/19 20:39 37.4 58 20 122/59 (80) 93 Room Air 04/14/19 20:10 Nasal Cannula 2.00 04/14/19 19:00 68 04/14/19 16:00 Nasal Cannula 2.00 04/14/19 16:00 37.4 58 20 122/59 (80) 93 Room Air I & O 04/15/19 07:00 Intake Total 1570 ml Balance 1570 ml Height & Weight Height: '" Weight: lbs. oz. kg; 23.67 BMI Method: General Appearance: No Apparent Distress, WD/WN HEENT: Pharynx Normal, Other (dry mucous membranes) Neck: Non Tender, Supple Respiratory: Chest Non Tender, No Accessory Muscle Use, No Respiratory Distress, Wheezing (bilateral lung bases, worse on the right) Cardiovascular: No Edema, No Murmur, Bradycardia Capillary Refill: Less Than 3 Seconds Peripheral Pulses: 2+ Radial Pulses (R) Extremity: Non Tender, No Pedal Edema Neurologic/Psychiatric: Alert, Oriented x3, Normal Mood/Affect Skin: Normal Color, Warm/Dry Results Lab Laboratory Tests 04/14/19 03:05 04/15/19 05:36 Assessment/Plan Assessment/Plan PNA with sepsis with hypoxia - Rocephin and azithromycin -Xiong cultures pending -Influenza is negative -oxygen -Pt will need repeat imaging 8 wks after discharge. Sinus bradycardia- denies CP -Monitor Elevated LFTs - probably secondary to sepsis -Monitor -hepatitis panel JANAK GONZALEZ DO Apr 15, 2019 12:53
--- NOTE | 2019-04-15 13:25 | NUR ---
SPO2 87% ON ROOM AIR @ REST. REPLACED O2 @ 2 LPM, SPO2 INCREASED TO 91%. Addendum: 04/15/19 at 1411 by NATALIYA ABDALLA RT Amended: Links added.
--- NOTE | 2019-04-15 14:04 | NUR ---
CM/SS visited with the patient to help set up oxygen at home. The patient states that he has not ever had oxygen at home and does not have a DME set up. The patient will need 2 L continuous. DME: The patient was provided with a Patient Preference Form to choose a DME. The patient verbalized that he would like to use [facility] CM/SS called the agency and faxed the medical information and script. They will deliver oxygen to the hospital. The patient states that he has transportation home from the hospital. No other needs at this time.
[2019-04-15] MEDS ORDERED: FLU QUADRIvalent (5+ YOA) 2019-2020 (AFLURIA) 0.5 ML IM ONE (16:02)
== END 2019-04-15 16:25 | disposition home or self-care (01) | DRG 871 ==
LOC: EDUNIT# 22:37 → ER 22:39 → ICU 23:57 → UNDOADMIN 04-13 → ICU 04-13 → 4TH 04-14 08:20
PROVIDERS: ADMIT Internal Medicine; ATTEND Internal Medicine
DX: A41.9 Sepsis, unspecified organism (principal); R65.20 Severe sepsis without septic shock; J18.9 Pneumonia, unspecified organism; E87.2 Acidosis; R00.1 Bradycardia, unspecified; R73.9 Hyperglycemia, unspecified; R06.6 Hiccough; R09.02 Hypoxemia; Z87.891 Personal history of nicotine dependence; Z23 Encounter for immunization
CPT/HCPCS: 36415; 71046; 80053; 80076; 81000; 82248; 83605; 84484; 85007; 85025; 85027; 85610; 85730; 86141; 87040; 87070; 87088; 87205; 87804; 93005; 94640; 94664; 94760; 94761; 96361; 96365; 96375

== ENCOUNTER → 2019-06-07 | Outpatient (CLI) | payer MEDICARE, OTHER ==
[~2019-06-07] MED LIST: AZIT250T12 PO; CATHETER FLUSH 10 ML SYR IV PRN; CEPH-507 PO; CHLO25TA20 PO; HOLD METFORMIN - RECEIVED CONTRAST 20 ML VIAL IV SCH; IOHEXOL 350 MG/ML 100 ML (OMNIPAQUE 350) VIAL IV ONE; NAPR220T66 PO; NS 100 ML (IVPB) BAG IV ONE
[2019-06-07 13:43] LABS: BUN/CREATININE RATIO 17; CALCIUM 9.6 MG/DL (8.5-10.1); CARBON DIOXIDE 21 MMOL/L (21-32); CHLORIDE 106 MMOL/L (98-107); CREATININE SERUM 1.09 MG/DL (0.60-1.30); GFR ESTIMATED > 60; GLUCOSE 105 MG/DL (70-105); POTASSIUM 4.2 MMOL/L (3.6-5.0); SODIUM 138 MMOL/L (135-145)
--- NOTE | 2019-06-07 14:41 | Diagnostic Imaging Report ---
PROCEDURE: MRI lumbar spine. TECHNIQUE: Multiplanar, multisequence MRI of the lumbar spine was performed without contrast. INDICATION: Low back pain. COMPARISON: No prior studies are available for comparison. FINDINGS: There is some straightening of the normal lumbar lordotic curvature. There is grade 1 spondylolisthesis of L5 on S1. There appear to be pars defects bilaterally at this level. The vertebral body heights are maintained. The marrow signal intensity demonstrates a benign-appearing hemangioma within the L3 vertebral body. No other marrow lesion is seen. There are Modic changes at the endplates at the L5-S1 level. No acute compression fracture is seen. There is severe degenerative disc disease at L5-S1 with complete loss of the disc space as well as desiccation and marginal osteophyte formation. The conus is unremarkable at the T12-L1 level. T12-L1: The central canal is patent. The neuroforamina are patent. L1-L2: The central canal is patent. The neuroforamina appear patent. L2-L3: A broad-based disc/osteophyte complex indents the ventral thecal sac. There is mild narrowing of the central canal. There is significant narrowing of the bilateral lateral recesses. There is also moderate bilateral neuroforaminal stenosis. L3-L4: A broad-based disc/osteophyte complex flattens the ventral thecal sac. There is mild narrowing of the central canal. There is significant narrowing of the bilateral lateral recesses with mild to moderate bilateral neuroforaminal stenosis. L4-L5: A broad-based disc/osteophyte complex flattens the ventral thecal sac. The central canal is patent but there is significant narrowing of the bilateral lateral recesses. There is significant left and mild right neuroforaminal stenosis. L5-S1: Hypertrophic facet degenerative changes are seen. There is trefoil narrowing of the central canal. A broad-based disc/osteophyte complex is present. There is significant bilateral lateral recess stenosis as well as severe bilateral neuroforaminal stenosis. The paraspinous tissues are unremarkable. IMPRESSION: Multilevel lumbar spondylosis with multilevel central canal, lateral recess, and neuroforaminal stenosis described level by level above. There is also spondylolysis and spondylolisthesis at L5-S1. Dictated by: Dictated on workstation # [id number]
--- NOTE | 2019-06-07 14:45 | Diagnostic Imaging Report ---
EXAMINATION: CT Chest with intravenous contrast. TECHNIQUE: Multiple contiguous axial images were obtained through the chest after the uneventful administration of intravenous contrast. All CT scans use one or more of the following dose optimizing techniques: automated exposure control, MA and/or KvP adjustment based on a patient size and exam type, or iterative reconstruction. HISTORY: Pneumonia COMPARISON: None available. FINDINGS: There are bibasilar areas of reticulation and groundglass. There is also a small amount of groundglass in the right upper lobe. No consolidation is seen. No pleural effusion. No pneumothorax. No suspicious nodules. Heart size is normal. There are moderate coronary artery calcifications. No pericardial effusion. Aorta is normal in caliber. There is no axillary or supraclavicular lymphadenopathy. There is no mediastinal lymphadenopathy. Limited views of the upper abdomen are unremarkable. There are no suspicious osseus lesions. IMPRESSION: 1. Mild bibasilar areas of reticulation and groundglass with a small amount of groundglass in the right upper lobe as well. Findings concerning for a viral pneumonia, and while nonspecific the differential does include COVID-19. Report was called to Vasquez Mccormick/Infection Control [facility] by luther at 2:45 p.m. Dictated by: Dictated on workstation # [id number]
--- NOTE | 2019-06-07 16:19 | NUR ---
Notified Margaret at [facility] of patients CT results. She will let Liliana ATKINSON know and follow up with the patient.
== END ==
LOC: RAD 13:08
PROVIDERS: ATTEND Nurse Practitioner Family
DX: R91.8 Other nonspecific abnormal finding of lung field (principal); M43.17 Spondylolisthesis, lumbosacral region; M48.061 Spinal stenosis, lumbar region without neurogenic claudication; M47.816 Spondylosis without myelopathy or radiculopathy, lumbar region
CPT/HCPCS: 36415; 71260; 72148; 80048